=== PATIENT | male | born 1980 | race Caucasian/White ===

== ENCOUNTER 2017-11-23 14:52 | Emergency (ER) | payer MEDICAID ==
[~2017-11-23] VITALS: Ht 170.2 cm; Wt 95.0 kg
[2017-11-23 15:30] VITALS: BP 138/89
== END 2017-11-23 16:03 | disposition home or self-care (01) ==
LOC: ED 15:40
DX: S46.212A Strain of muscle, fascia and tendon of other parts of biceps, left arm, initial encounter (principal); X58.XXXA Exposure to other specified factors, initial encounter; Y93.89 Activity, other specified; Y92.89 Other specified places as the place of occurrence of the external cause; Y99.8 Other external cause status
CPT/HCPCS: 99283